=== PATIENT | female | born 1990 | race Hispanic/Latino ===

== ENCOUNTER → 2025-04-11 | Day surgery (SDC) | payer OTHER ==
[~2025-04-11] MED LIST: BACLOFEN20 MG PO; DEXAMETHASONE4 MG PO; FAMOTIDINE20 MG PO; LIDOCAINE HCL 2% LOCAL INJ 5 ML SDV VIAL INJ ONE; METOCLOPRAMIDE HCL 10 MG/2ML VIAL ONE; OLMESARTAN-HCT1 EAC2 PO; PROPOFOL IV EMULSION 10 MG/ML 20 ML VIAL ONE
[2025-04-11] MEDS: LACTATED RINGER'S 1,000 ML ONE (11:03)
[2025-04-11 12:56] VITALS: TEMP 97.6
[2025-04-11 13:20] VITALS: BP 116/68; PULSE 93; RESP 18; O2SAT 99
== END | disposition home or self-care (01) ==
LOC: ENDO 10:17
PROVIDERS: ATTEND Internal Medicine Gastroenterology
DX: K22.2 Esophageal obstruction (principal); K29.00 Acute gastritis without bleeding; K29.50 Unspecified chronic gastritis without bleeding; K22.10 Ulcer of esophagus without bleeding; K44.9 Diaphragmatic hernia without obstruction or gangrene; I10 Essential (primary) hypertension; Z71.89 Other specified counseling; R05.3 Chronic cough; E66.01 Morbid (severe) obesity due to excess calories; E78.5 Hyperlipidemia, unspecified; G89.29 Other chronic pain; Z01.810 Encounter for preprocedural cardiovascular examination; Z79.899 Other long term (current) drug therapy; Z68.37 Body mass index [BMI] 37.0-37.9, adult; Z71.3 Dietary counseling and surveillance
CPT/HCPCS: 43239; 43450; 81025; 93005; J2003; J2470; J2765